=== PATIENT | female | born 1945 | race Caucasian/White ===

== ENCOUNTER → 2017-09-12 | Outpatient (CLI) | payer OTHER ==
--- NOTE | 2017-09-12 14:53 | RAD ---
Renal sonography History: Chronic kidney disease stage III. Findings: The longitudinal and AP and transverse dimensions of the left kidney are 10.3 cm and 4.0 cm and 4.3 cm respectively. There is a 3.6 cm cyst of the upper pole of the left kidney. The longitudinal and AP and transverse dimensions of the right kidney are 10.4 cm and 4.0 cm and 3.9 cm respectively. No hydronephrosis or perinephric fluid collection or renal mass is seen on either side. The urinary bladder is mildly distended. Urinary bladder volume is 24 cc. No intraluminal echodensities or masses are seen. IMPRESSION: Left renal cyst. No hydronephrosis.
== END | disposition home or self-care (01) ==
LOC: US 11:48
PROVIDERS: ATTEND Internal Medicine Nephrology
DX: N18.3 Chronic kidney disease, stage 3 (moderate) (principal); N28.1 Cyst of kidney, acquired
CPT/HCPCS: 76770